=== PATIENT | female | born 1975 ===

== ENCOUNTER 2017-11-19 01:24 | Emergency (ER) | payer MEDICAID, OTHER ==
[2017-11-19 01:49] VITALS: TEMP 98.8
[2017-11-19] MEDS ORDERED: Sodium Chloride 0.9% 1,000 ML IV STA (02:14)
--- NOTE | 2017-11-19 02:16 | ED PDOC ---
Syncope/Near Syncope/Dizziness Time Seen by Provider: 11/19/17 01:58 Chief Complaint (Nursing): Syncope History Per: Patient History/Exam Limitations: no limitations Onset/Duration Of Symptoms: Mins Current Symptoms Are (Timing): Better Activity At Onset Of Symptoms: Had Just Stood up, Exertional Activity Additional Complaint(s): Hx of anemia presenting with syncope, states she was in the bathroom having a bowel movement, got up and was walking back to bed and felt hot, "tingly", lightheaded and then passed out, which she does not remember, states she landed on her face, injuring her jaw and front tooth. Denies chest pain, shortness of breath, palpitations, or other symptoms. Of note, family member states she did not drink much water today. Last thing patient reports eating was ramatif noodburke at 7PM. No recent illnesses. Past Medical History Reviewed: Historical Data, Nursing Documentation, Vital Signs Vital Signs: Last Vital Signs Temp 98.8 F 11/19/17 01:38 Pulse 86 11/19/17 01:38 Resp 17 11/19/17 01:38 BP 128/70 11/19/17 01:38 Pulse Ox 99 11/19/17 01:38 - Medical History PMH: Anemia, Migraine Denies: Chronic Kidney Disease - Family History Family History: States: Unknown Family Hx - Home Medications Home Medications: Ambulatory Orders Medication Instructions Recorded Docusate [Colace] 100 mg PO DAILY #0 cap 06/11/15 Ferrous Sulfate [Feosol] 325 mg PO BID #0 tab 06/11/15 Norethindrone [Dot] 0.35 mg PO DAILY #30 tab 06/11/15 - Allergies Allergies/Adverse Reactions: Allergies Allergy/AdvReac Type Severity Reaction Status Date / Time No Known Allergies Allergy Verified 12/24/14 06:58 Review of Systems ROS Statement: Except As Marked, All Systems Reviewed And Found Negative Gastrointestinal: Negative for: Nausea, Vomiting, Abdominal Pain Physical Exam - Reviewed Nursing Documentation Reviewed: Yes Vital Signs Reviewed: Yes - Physical Exam Appears: Positive for: Well, Non-toxic, No Acute Distress Head Exam: Positive for: ATRAUMATIC, NORMAL INSPECTION, NORMOCEPHALIC Skin: Positive for: Normal Color, Warm, DRY Eye Exam: Positive for: EOMI, Normal appearance, PERRL ENT: Positive for: Other (Chipped front tooth, no bleeding; swelling, ecchymoses to chin, no laceration) Neck: Positive for: Normal, Painless ROM Cardiovascular/Chest: Positive for: Regular Rate, Rhythm Respiratory: Positive for: CNT, Normal Breath Sounds Gastrointestinal/Abdominal: Positive for: Normal Exam, Soft Back: Positive for: Normal Inspection Extremity: Positive for: Normal ROM Neurologic/Psych: Positive for: Alert, Oriented - Laboratory Results Result Diagrams: 11/19/17 03:00 11/19/17 03:00 - ECG ECG Rhythm: Positive for: Normal QRS, Normal ST Segment, Sinus Rhythm O2 Sat by Pulse Oximetry: 99 Medical Decision Making Medical Decision Makin A/P: Hx of anemia p/w syncope -patient well appearing at this time with normal vitals, normal EKG -patient likely suffering from vasovagal syncope -will hydrate, check basic labs, scans -pending re-eval Time:0407 CT Head w/o Contrast Results FINDINGS: Brain: No intracranial hemorrhage. No mass. No edema. Ventricles: No hydrocephalus. Bones/joints: No calvarial fracture. Soft tissues: Scalp calcifications. Mastoid air cells: No mastoid effusion. IMPRESSION: 1. No intracranial hemorrhage. 2. See facial bone CT report for additional details. 3. Incidental/non-acute findings are described above. Time: 0410 CT Maxillofacial without IV Contrast FINDINGS: Bones/joints: No acute fracture. Soft tissues: Mild soft tissue swelling along mandible. Dermal calcifications. Orbits: Unremarkable as visualized. Sinuses: Scattered minimal to mild mucosal thickening. No air-fluid levels. IMPRESSION: 1. No fracture. 2. Incidental/non-acute findings are described above 5AM Workup negative, patient feeling better, advised her to drink more fluids and to followup with her PMD and dentistry. REturn precautions given. Scribe Attestation: Documented by John Hawkins, acting as a scribe for Dr. Yogi Lentz MD. Provider Scribe Attestation: All medical record entries made by the Scribe were at my direction and personally dictated by me. I have reviewed the chart and agree that the record accurately reflects my personal performance of the history, physical exam, medical decision making, and the department course for this patient. I have also personally directed, reviewed, and agree with the discharge instructions and disposition. Disposition - Clinical Impression Clinical Impression: Syncope - Patient ED Disposition Is Patient to be Admitted: No - Disposition Referrals: Mathew Raman [Outside] Disposition: Routine/Home Disposition Time: 05:23 Condition: IMPROVED Instructions: Syncope (Fainting), Vasovagal Response Forms: Mathew Morales ([place])
[2017-11-19 03:05] LABS: HEMOGLOBIN 11.5 g/dL (12.0-16.0); MEAN CORPUSCULAR HEMOGLOBIN 26.1 pg (27.0-31.0); MEAN CORPUSCULAR HGB CONC 32.2 g/dL (33.0-37.0); RBC 4.41 Mil/uL (3.80-5.20); RED CELL DISTRIBUTION WIDTH 15.9 % (11.5-14.5); WHITE BLOOD COUNT 11.3 K/uL (4.8-10.8)
[2017-11-19 03:15] LABS: CALCIUM 8.9 mg/dL (8.4-10.2); GFR AFRICAN-AMERICAN > 60; GFR NON-AFRICAN AMERICAN > 60
[2017-11-19 03:31] LABS: BLOOD UREA NITROGEN 12 mg/dl (7-17)
--- NOTE | 2017-11-19 04:08 | CT ---
EXAM: CT Head Without Intravenous Contrast CLINICAL HISTORY: 42 years old, female; Injury or trauma; Fall; Initial encounter; Blunt trauma (contusions or hematomas); Additional info: Syncope with fall TECHNIQUE: Axial computed tomography images of the head/brain without intravenous contrast. All CT scans at this facility use one or more dose reduction techniques, viz.: automated exposure control; ma/kV adjustment per patient size (including targeted exams where dose is matched to indication; i.e. head); or iterative reconstruction technique. Coronal and sagittal reformatted images were created and reviewed. COMPARISON: CT - HEAD W/O CONTRAST 2014-12-26 09:51 FINDINGS: Brain: No intracranial hemorrhage. No mass. No edema. Ventricles: No hydrocephalus. Bones/joints: No calvarial fracture. Soft tissues: Scalp calcifications. Mastoid air cells: No mastoid effusion. IMPRESSION: 1. No intracranial hemorrhage. 2. See facial bone CT report for additional details. 3. Incidental/non-acute findings are described above.
--- NOTE | 2017-11-19 04:10 | CT ---
EXAM: CT Maxillofacial Without Intravenous Contrast CLINICAL HISTORY: 42 years old, female; Injury or trauma; Fall; Initial encounter; Blunt trauma (contusions or hematomas); [place]; Additional info: Syncope with fall TECHNIQUE: Axial computed tomography images of the face without intravenous contrast. All CT scans at this facility use one or more dose reduction techniques, viz.: automated exposure control; ma/kV adjustment per patient size (including targeted exams where dose is matched to indication; i.e. head); or iterative reconstruction technique. Coronal and sagittal reformatted images were created and reviewed. COMPARISON: No relevant prior studies available. FINDINGS: Bones/joints: No acute fracture. Soft tissues: Mild soft tissue swelling along mandible. Dermal calcifications. Orbits: Unremarkable as visualized. Sinuses: Scattered minimal to mild mucosal thickening. No air-fluid levels. IMPRESSION: 1. No fracture. 2. Incidental/non-acute findings are described above.
[2017-11-19 05:39] VITALS: BP 134/74; PULSE 69; RESP 16; O2SAT 98
--- NOTE | 2017-11-19 10:19 | CARD ---
APPROVED REPORT EKG Measurement Heart [id number] <Conclusion> Normal sinus rhythm Normal ECG
== END 2017-11-19 05:38 | disposition home or self-care (01) ==
LOC: H.ER 01:24
DX: R55 Syncope and collapse (principal)
CPT/HCPCS: 70450; 70486; 80048; 82948; 84484; 85027; 93005; 96374; 99285; J1885; J7040